=== PATIENT | female | born 1965 | race Caucasian/White ===

== ENCOUNTER → 2019-12-03 | Outpatient (CLI) | payer OTHER ==
--- NOTE | 2019-12-03 15:02 | RAD ---
CT scan of the abdomen and pelvis without contrast 12/03/2019 CLINICAL HISTORY: Left upper quadrant abdominal pain. TECHNIQUE: Unenhanced, contiguous, 3 mm axial sections were obtained through the abdomen and pelvis. One or more of the following individualized dose reduction techniques were utilized for this study: 1. Automated exposure control. 2. Adjustment of the mA and/or kV according to patient size. 3. Use of iterative reconstruction technique. FINDINGS: Images through the lung bases demonstrate minimal dependent subsegmental atelectasis bilaterally. The liver, spleen, pancreas, right adrenal gland and both kidneys are within normal limits. A 1.2 cm low-attenuation nodule is seen involving the left adrenal gland consistent with an adrenal adenoma. Mild atherosclerotic calcification of the abdominal aorta is seen. The abdominal aorta tapers normally. Air and stool are seen throughout the colon. Malrotation of the bowel is seen. The jejunum and ileum are to the right of midline. The colon is predominantly to the left of midline. The cecum is within the right upper quadrant abdomen. The appendix is well-visualized and is within normal limits. There is no evidence of bowel obstruction. Images through the pelvis demonstrate the urinary bladder distended with urine. Calcifications are seen within the pelvis consistent with phleboliths. Several rounded mass lesions are seen involving the uterus consistent with fibroids. These measure 5 mm to 2.1 cm in size. A 2.3 cm rounded low-attenuation lesion is seen involving the left ovary consistent with a dominant follicle. No free fluid is seen. Minimal S-shaped curvature of the thoracolumbar spine is noted. IMPRESSION: No acute abnormality is seen. Electronically signed by: Shashi William MD (12/03/2019 2:59 PM) [facility] [place]
== END | disposition home or self-care (01) ==
LOC: CT 13:56
PROVIDERS: ATTEND Physician Assistant Medical
DX: R10.12 Left upper quadrant pain (principal); I70.0 Atherosclerosis of aorta; Q43.3 Congenital malformations of intestinal fixation; J98.11 Atelectasis
CPT/HCPCS: 74176